=== PATIENT | female | born 1945 | race Caucasian/White ===

== ENCOUNTER 2016-06-15 18:06 | Inpatient (IN) | payer MEDICARE ==
[2016-06-15 19:31] LABS: SPECIFIC GRAVITY 1.015 (1.001-1.030); URINE BILIRUBIN NEGATIVE (NEGATIVE); URINE BLOOD NEGATIVE (NEGATIVE); URINE GLUCOSE (UA) NEGATIVE (NEGATIVE); URINE LEUKOCYTE ESTERASE NEGATIVE (NEGATIVE); URINE NITRITE NEGATIVE (NEGATIVE); URINE PROTEIN NEGATIVE (NEGATIVE); URINE UROBILINOGEN NORMAL (0-1 mg/dl)
[2016-06-15 19:33] LABS: ABSOLUTE NEUTROPHIL COUNT 1.4 K/mm3 (1.8-7.7); BASO % 0.9 % (0.2-1.0); EOS # 0.2 (0.0-0.5); EOS % 6.1 % (0.9-2.9); HEMATOCRIT 49.1 % (37.0-47.0); HEMOGLOBIN 16.9 gm/l (12.0-16.0); IMM NEUT% 0.3 % (0-1); LYMPH # 1.4 (1.0-4.8); LYMPH % 39.1 % (15-45); MEAN CELL VOLUME 102.5 fl (81.0-99.0); MEAN CORPUSCULAR HEMOGLOBIN 35.3 pg (27.0-31.0); MEAN CORPUSCULAR HGB CONC 34.4 g/dl (33.0-37.0); MEAN PLATELET VOLUME 10.4 fl (7.4-10.4); MONO # 0.5 (0.0-0.8); MONO % 13.9 % (4-12); NEUT % 39.7 % (43-75); PLATELET COUNT 99 K/mm3 (130-400); RED CELL DISTRIBUTION WIDTH 12.9 % (11.5-14.5)
[2016-06-15 19:47] LABS: ALB/GLOB RATIO 1.2 (>1.0); ALBUMIN 3.4 gm/dL (3.5-5.7); CALCIUM 9.5 mg/dL (8.6-10.3); MAGNESIUM 1.8 mg/dL (1.9-2.7); TROPONIN I < 0.01 ng/ml (0.0-0.06)
[2016-06-15 19:47] LABS: URINE APPEARANCE CLEAR; URINE COLOR YELLOW
--- NOTE | 2016-06-15 19:50 | RAD ---
CHEST 2 VIEWS HISTORY: Cough and shortness of breath. Frontal and lateral chest radiographs dated 06/15/2016. COMPARISON: None. FINDINGS: FOCAL AIRSPACE OPACITY: No gross airspace consolidation. BRONCHOVASCULAR MARKINGS: Coarsened. PLEURAL EFFUSION: None. CARDIOMEDIASTINAL SILHOUETTE: Nonenlarged. Aortic arch calcification. PNEUMOTHORAX: None identified. OSSEOUS STRUCTURES: Upper thoracic disc degeneration. UPPER ABDOMEN: Status post cholecystectomy. IMPRESSION: No gross airspace consolidation. Coarsened bronchovascular markings, which can be seen in the setting of bronchitis, atypical/viral infection, or central airways disease. Evidence of prior cholecystectomy and aortic atherosclerotic disease.
[2016-06-15 19:51] LABS: CKMB ISOENZYME 1.9 ng/ml (0.6-6.3)
[2016-06-15] MEDS ORDERED: ENALAPRILAT DIHYDRATE 1.25 MG/ML 1ML VIAL IV ONE (20:18)
[2016-06-15] MEDS ORDERED: FUROSEMIDE 40 MG/4 ML VIAL ONE (20:18)
[2016-06-15] MEDS ORDERED: BISACODYL 5 MG TABLET.EC PO PRN (20:51)
[2016-06-15] MEDS ORDERED: MAGNESIUM HYDROXIDE 30 ML UDCUP PO PRN (20:51)
[2016-06-15] MEDS ORDERED: SODIUM CHLORIDE 0.9% 100 ML IV PRN (20:51)
[2016-06-15] MEDS ORDERED: MENTHOL/CETYLPYRD 1 EACH LOZENGE PO PRN (20:51)
[2016-06-15] MEDS ORDERED: BISACODYL 10 MG SUP PR PRN (20:51)
[2016-06-15] MEDS ORDERED: BLISTEX LIPSTICK 1 EACH TP PRN (20:51)
[2016-06-15 21:00] VITALS: BMI 30.5
[2016-06-15] MEDS ORDERED: ENOXAPARIN SODIUM 40 MG/0.4 ML SYRINGE SUB-Q SCH (21:00)
[2016-06-15] MEDS ORDERED: MAGNESIUM SULFATE 2 G/50 ML 2 G in Premix (Water) 50 ml 1 EACH IV ONE (21:52)
[2016-06-15] MEDS ORDERED: AMLODIPINE BESYLATE 5 MG TABLET PO ONE (21:52)
[2016-06-15] MEDS ORDERED: PUMP TUBING ONE (22:46)
[2016-06-15] MEDS ORDERED: MAGNESIUM SULFATE 1 G/100 ML 200 ML IV ONE (22:53)
[2016-06-15] MEDS ORDERED: ENOXAPARIN SODIUM 80 MG/0.8 ML SYRINGE SUB-Q SCH (23:00)
[2016-06-15] MEDS: DOCUSATE SODIUM 100 MG CAPSULE PO SCH (23:02)
[2016-06-15] MEDS: MAGNESIUM SULFATE 1 G/100 ML 100 ML IV SCH (23:32)
[2016-06-16] MEDS: MAGNESIUM SULFATE 1 G/100 ML 100 ML IV SCH (01:11)
[2016-06-16 05:35] LABS: ABSOLUTE NEUTROPHIL COUNT 1.8 K/mm3 (1.8-7.7); EOS # 0.2 (0.0-0.5); EOS % 4.3 % (0.9-2.9); HEMATOCRIT 45.2 % (37.0-47.0); HEMOGLOBIN 15.5 gm/l (12.0-16.0); IMM NEUT% 0.2 % (0-1); LYMPH # 1.5 (1.0-4.8); LYMPH % 36.5 % (15-45); MEAN CELL VOLUME 101.3 fl (81.0-99.0); MEAN CORPUSCULAR HEMOGLOBIN 34.8 pg (27.0-31.0); MEAN CORPUSCULAR HGB CONC 34.3 g/dl (33.0-37.0); MEAN PLATELET VOLUME 10.5 fl (7.4-10.4); MONO # 0.6 (0.0-0.8); MONO % 14.9 % (4-12); NEUT % 43.1 % (43-75); PLATELET COUNT 97 K/mm3 (130-400); RED CELL DISTRIBUTION WIDTH 12.7 % (11.5-14.5)
[2016-06-16 05:56] LABS: CALCIUM 8.8 mg/dL (8.6-10.3); MAGNESIUM 2.4 mg/dL (1.9-2.7)
--- NOTE | 2016-06-16 06:46 | HP ---
Lindy Loomis [id number] DATE OF ADMISSION: 06/15/2016 CHIEF COMPLAINT: Shortness of breath. HISTORY OF PRESENT ILLNESS: The patient is a 71-year-old female with past medical history significant for hypertension who presents to the [facility] Emergency Department with complaints of a one week history of increased dyspnea. She reports, however, she has had some chronic shortness of breath symptoms which have been present since last January. She reports, however, over the last week her symptoms have gotten dramatically worse. They seem to start after she got a plane from [place]. She and her have both had similar symptoms of cough. She was treated with a Z-Dheeraj, but had no significant improvement. She denies any fevers or chills. She did have a little bit of orthopnea last night and slept with two pillows. She has not noticed any lower extremity swelling and has not had any abdominal bloating. In the emergency department she was found to have severe blood pressure elevation. She was treated with Enalapril and Lasix. She was felt to have acute diastolic heart failure and was referred to the hospitalist service for admission. REVIEW OF SYSTEMS: Negative for any recent fevers or chills. She has had slight nasal congestion along with a cough. Initially the cough was product of discolored sputum. She has had associated dyspnea. She has had no chest pain, no palpitation. She denies nausea, vomiting, abdominal pain, or bloating, diarrhea, or constipation. She does get occasional lower extremity swelling, but denies any significant swelling in the last week. She has had no new arthralgia's. She has had no leg pain. No headaches, fainting, blackouts or seizures. No urinary complaints. Review of systems is otherwise negative. She does have excessive daytime somnolence and she does snore. PAST MEDICAL HISTORY: Significant for chronic essential hypertension. Her daughter notes that she has recorded marked blood pressure elevation at home, but at the doctor's office it seems like it has been okay. She has had some mild carotid arterial disease which has been stable. She has had some elevated liver function tests of uncertain etiology. She was evaluated by Dr. Epi Blue and reassured by this. Her ultrasound of her liver showed evidence of fatty liver change, no biliary obstruction, no gallstones. She has never had a liver biopsy. She denies any other chronic medical problems except she did have low vitamin D levels last year and takes vitamin D supplements. PAST SURGICAL HISTORY: Significant for a prior cholecystectomy, tonsillectomy, appendectomy, and she had a tubal on the left side many years ago. She has not had any recent surgeries. ALLERGIES: DOCUMENTED TO PENICILLIN as a child. CURRENT MEDICATIONS: Consistent of: 1. Atenolol 50 mg daily. 2. Vitamin D3 1000 units daily. 3. She is not on any calcium or supplements at this time. FAMILY HISTORY: Significant for a mother who had congestive heart failure. Her father had emphysema. SOCIAL HISTORY: She has been for over 50 years, they have four children. She is a former smoker, she quit approximately 10 years ago. She was never a heavy smoker using about a pack a week approximating 20 pack years. She did have some second hand smoke exposure as a child though. Her primary care provider is Dr. Brittani De La Vega. She denies heavy alcohol use or any illicit drug use. She has never had a pneumonia vaccine or a flu vaccine. PHYSICAL EXAMINATION: VITAL SIGNS: Show a body mass index of 30.6 and a weight of 71 kg. Temperature is 97.5, pulse 62, blood pressure 194/84 currently and was 212/76 in the emergency department, her respiratory rate is 20, her oxygen saturations are 93% on 2 liters and were down to 87% on room air with minimal activity. GENERAL: This is a slightly obese female in no acute distress. HEENT: Shows moist pink oral mucosa. No lesions. NECK: Supple without lymphadenopathy. No visible jugular venous distention. LUNGS: Do reveal bibasilar crackles. CARDIOVASCULAR: Reveals a regular rate and rhythm without a murmur. ABDOMEN: Obese, soft, nontender, nondistended with positive bowel sounds. PELVIC: Deferred. RECTAL: Deferred. EXTREMITIES: Show trace lower extremity edema. Normal peripheral pulses in her feet and extremities. Jeison sign is negative bilaterally. No skin lesions. NEURO: Nonfocal. She is alert and oriented x3. LABORATORY STUDIES: CBC shows a white count of 3.5, hemoglobin of 16.9, hematocrit of 49.1, platelet count of 99,000. Lactate is elevated at 2.3. Chemistry profile shows sodium of 139, potassium 4.3, carbon dioxide 22, BUN 10, creatinine 0.7, glucose 99, magnesium low at 1.8. Total bilirubin is 1.7, AST is 103, ALT 61. Troponin I is less than 0.01. B-type natiuretic peptide is 150. Albumin 3.4, globulin 2.8. Urinalysis is unremarkable. Influenza A and B screen were negative. Lactate elevated at 2.3. DIAGNOSTICS: Chest x-ray shows some coarsened bronchovascular markings, no cardiomegaly, no airspace consolidation. EKG shows sinus rhythm. No ST or T-wave changes. ASSESSMENT: Patient with shortness of breath with hypoxia. She had markedly elevated blood pressure in the emergency department, rule out acute diastolic heart failure, suspect hypertensive urgency. Lactic acidosis likely due to CHF. There is no concern for sepsis at this time. She has obesity with excessive daytime somnolence. She may benefit from an outpatient sleep study in the future. She has had recent travel. I am planning on doing a CT angiogram in the morning regardless of D-Dimer level given the persistent nature of her shortness of breath symptoms. I am also planning on getting an echocardiogram. I have ordered a single dose of oral Norvasc today. Will likely put her on an Semaj inhibitor and possible Norvasc for a more aggressive blood pressure treatment, but will reevaluate her renal function in the morning. I am going to go ahead and give her a 1mg/1kg of Lovenox pending the results of her CT angiogram in the morning. Recommended she consider a flu vaccine and a pneumonia vaccination, she has not yet decided. We will give her some magnesium replacement for her hypomagnesemia. She had elevated liver function tests likely due to chronic fatty liver disease, possibly related to diastolic heart failure as well. She has some mild leukopenia and thrombocytopenia, suspect she is recovering from a viral bronchitis and I think the leukopenia and thrombocytopenia are virally mediated. She has elevated hemoglobin level, cause unclear, suspicious for chronic hypoxia, possibly related to sleep apnea. Further treatment and recommendations will depend on her hospital course. JOB: [id number] CC: Dr. Brittani De La Vega
[2016-06-16] MEDS ORDERED: IOPAMIDOL 370 (76%) 100 ML VIAL IV ONE (08:12)
[2016-06-16] MEDS: DOCUSATE SODIUM 100 MG CAPSULE PO SCH ×2 (09:33→20:46)
[2016-06-16] MEDS: ATENOLOL 50 MG TABLET PO SCH (09:34)
[2016-06-16] MEDS: VITAMIN D3 1,000 UNITS CAP.LIQ PO SCH (09:34)
--- NOTE | 2016-06-16 10:23 | CT ---
INDICATION: CHF, shortness of breath. COMPARISON: Plain films 06/15/2016 TECHNIQUE: Helical scan mode CT of the Thorax with 2 mm collimated images were obtained after uneventful intravenous contrast administration of 80 of Isovue-370. Sagittal and coronal reformations with high resolution lung algorithm images were also created at this time. Maximal intensity projection images and 3-D volumetric sequences were created at a separate, dedicated workstation. DLP: 423.1 FINDINGS: There are no pulmonary arterial filling defects. Mild motion artifact does limit assessment. Dependent and atelectatic changes are present. There is a coarseness to the interstitium. No pleural effusion. The central airways are widely patent. There is no axillary adenopathy. Right precarinal node on image 29 measures 1.6 x 1 cm. Right hilar node on image 35 measures 1.6 x 1.5 cm. Nodes are enlarged without respect histology. No other adenopathy is seen in the nicolle or mediastinum. The heart and great vessels opacify normally. Surgical clips are present in the gallbladder fossa. There may be gastroesophageal varices. Correlation with patient's history and physical for underlying cirrhosis would be recommended. Review of bone windows demonstrates no osteoblastic or lytic lesions. Mild degenerative changes of the spine. IMPRESSION: 1. Negative for pulmonary embolism. Study is somewhat limited by patient breathing motion artifact. Coarseness to the lung interstitium is present without focal pathology. Hilar and mediastinal adenopathy without respect histology. Possible gastroesophageal varices. Question of underlying cirrhosis history. Findings were called to Dr. Ross at approximately 1018 hours on 06/16/2016.
--- NOTE | 2016-06-16 11:45 | PDOC43 ---
- Subjective Chief Complaint: SOB Feels better this AM. Still sl more SOB than nl. No CP. No F/C. No N/V. No other c/o's. Subjective: Reports Tolerating Diet Well, Reports Urinating Without Difficulty, Denies Cough, Denies Abdominal Pain, Denies Nausea, Denies Vomiting, Denies Fever, Denies Chills - Objective Vital Signs Temperature 97.7 F 06/16/16 07:39 Pulse Rate 65 06/16/16 07:39 Respiratory Rate 16 06/16/16 07:39 Blood Pressure 128/50 06/16/16 07:39 O2 Saturation by Pulse Oximetry 92 06/16/16 07:39 Oxygen Delivery Method Nasal Cannula Oxygen Flow Rate 2 Intake and Output 06/15/16 06/16/16 06/17/16 06:59 06:59 06:59 Intake Total 670 Output Total 1950 Balance -1280 General: Alert, Oriented x3, Cooperative, No Acute Distress HEENT: Atraumatic Lungs: Clear to Auscultation Bilaterally Cardiovascular: Regular Rate and Rhythm Abdomen: Soft, Normal Bowel Sounds, Non-Distended, No Tenderness Extremities: Normal Cap Refill, Normal Pulses, No Edema Laboratory 06/16/16 05:15 06/16/16 05:15 06/15/16 06/16/16 19:15 05:15 Total Bilirubin 1.7 H AST 101 H ALT 61 H Alkaline Phosphatase 109 H Troponin I < 0.01 < 0.01 Current Medications: Current meds reviewed in EMR. - Problems: Assessment/Plan (1) Hypoxia Status: AcuteAssessment/Plan: SOB x several months with acute exacerbation and hypoxia at admit. Dx still unclear. Cherst CTA with no PE and no evidence on pna. Awaiting echo this afternoon. Suspect HTN urgency in context of presumed undiagnosed MINH as etiology. Con't supportive care and await results of workup. (2) HTN (hypertension) Qualifiers: Hypertension type: essential hypertension Qualifier Code: (I10) Essential (primary) hypertension Status: AcuteAssessment/Plan: HTN urgency at admit. Improved with Lasix/enalapril in ER and po norvasc last noc. Await echo results- anticipate starting ACEI. (3) Fatty liver Status: ChronicAssessment/Plan: Appears to be long standing at least as far back as 2006. Abd US 09/15 c/w fatty liver. Suspect BENAVIDES. Possible esoph varices noted on CT scan. Anticipate outpt f/u. VTE Prophylaxis: Lovenox. Disposition: Anticipate d/c home in 1-2 days.
[2016-06-16] MEDS: ENOXAPARIN SODIUM 40 MG/0.4 ML SYRINGE SUB-Q SCH (13:09)
[2016-06-16] MEDS: LISINOPRIL 20 MG TABLET PO SCH (16:03)
[2016-06-17 06:29] LABS: HEMATOCRIT 43.4 % (37.0-47.0); HEMOGLOBIN 14.9 gm/l (12.0-16.0); MEAN CELL VOLUME 101.4 fl (81.0-99.0); MEAN CORPUSCULAR HEMOGLOBIN 34.8 pg (27.0-31.0); MEAN CORPUSCULAR HGB CONC 34.3 g/dl (33.0-37.0)
[2016-06-17 06:50] LABS: ALB/GLOB RATIO 1.2 (>1.0); ALBUMIN 2.7 gm/dL (3.5-5.7); CALCIUM 9.1 mg/dL (8.6-10.3)
[2016-06-17] MEDS: DOCUSATE SODIUM 100 MG CAPSULE PO SCH (08:48)
[2016-06-17] MEDS: VITAMIN D3 1,000 UNITS CAP.LIQ PO SCH (08:48)
[2016-06-17] MEDS: ATENOLOL 50 MG TABLET PO SCH (08:49)
[2016-06-17] MEDS: LISINOPRIL 20 MG TABLET PO SCH (08:50)
[2016-06-17] MEDS ORDERED: FUROSEMIDE 40 MG/4 ML VIAL IV ONE ×2 (09:17→17:05)
[2016-06-17] MEDS: ENOXAPARIN SODIUM 40 MG/0.4 ML SYRINGE SUB-Q SCH (11:48)
--- NOTE | 2016-06-17 12:24 | PDOC43 ---
- Subjective Chief Complaint: SOB Subjective: Reports Tolerating Diet Well, Denies Chest Pain, Denies Fever - Objective Vital Signs Temperature 98.1 F 06/17/16 11:54 Pulse Rate 63 06/17/16 11:54 Respiratory Rate 16 06/17/16 11:54 Blood Pressure 146/50 06/17/16 11:54 O2 Saturation by Pulse Oximetry 91 06/17/16 11:54 Oxygen Delivery Method Nasal Cannula Oxygen Flow Rate 2 Intake and Output 06/16/16 06/17/16 06/18/16 06:59 06:59 06:59 Intake Total 670 1460 Output Total 1950 775 Balance -1280 685 General: Alert, Oriented x3, Cooperative, Mild Distress HEENT: Mucous membr. moist/pink Lungs: Other (bibasilar crackles) Cardiovascular: Regular Rate and Rhythm Abdomen: Soft, No Tenderness Extremities: Edema (trace) Skin: Warm, Dry, Intact Laboratory 06/17/16 06:10 06/17/16 06:10 06/17/16 06:10 MCV 101.4 H MCH 34.8 H Total Bilirubin 1.7 H AST 56 H Total Protein 5.0 L Albumin 2.7 L Current Medications: Current meds reviewed in EMR. - Problems: Assessment/Plan (1) Hypoxia Status: AcuteAssessment/Plan: SOB x several months with acute exacerbation and hypoxia at admit. Dx still unclear. Cherst CTA with no PE and no evidence on pna. ECHO shows diastolic dysfunction with preserved LVEF. Suspect HTN urgency in context of presumed undiagnosed MINH as etiology and acute diastolic CHF. -IV lasix, outpatient cardiology and pulmonary follow up (2) HTN (hypertension) Qualifiers: Hypertension type: essential hypertension Qualifier Code: (I10) Essential (primary) hypertension Status: AcuteAssessment/Plan: HTN urgency at admit. Improved with Lasix/enalapril in ER and po norvasc last noc. - doing well on ACEI. (3) Fatty liver Status: ChronicAssessment/Plan: Appears to be long standing at least as far back as 2006. Abd US 09/15 c/w fatty liver. Suspect BENAVIDES. Possible esoph varices noted on CT scan. Anticipate outpt f/u. VTE Prophylaxis: Lovenox. Disposition: Anticipate d/c home in 1-2 days.
[2016-06-17] MEDS: GUAIFENESIN 600 MG TABLET.DR PO SCH (14:03)
[2016-06-17] MEDS: ACETAMINOPHEN 325 MG TABLET PO PRN (14:41)
[2016-06-18] MEDS: DOCUSATE SODIUM 100 MG CAPSULE PO SCH ×2 (00:32→09:31)
[2016-06-18] MEDS: GUAIFENESIN 600 MG TABLET.DR PO SCH ×2 (00:32→09:30)
[2016-06-18] MEDS: ACETAMINOPHEN 325 MG TABLET PO PRN (05:44)
[2016-06-18 06:39] LABS: EOS # 0.2 (0.0-0.5); EOS % 4.6 % (0.9-2.9); HEMATOCRIT 42.2 % (37.0-47.0); HEMOGLOBIN 14.4 gm/l (12.0-16.0); IMM NEUT% 0.2 % (0-1); LYMPH # 1.3 (1.0-4.8); LYMPH % 32.3 % (15-45); MEAN CELL VOLUME 101.7 fl (81.0-99.0); MEAN CORPUSCULAR HEMOGLOBIN 34.7 pg (27.0-31.0); MEAN CORPUSCULAR HGB CONC 34.1 g/dl (33.0-37.0); MEAN PLATELET VOLUME 11.6 fl (7.4-10.4); MONO # 0.6 (0.0-0.8); MONO % 13.4 % (4-12); NEUT % 48.5 % (43-75); PLATELET COUNT 90 K/mm3 (130-400); RED CELL DISTRIBUTION WIDTH 12.7 % (11.5-14.5)
[2016-06-18 07:02] LABS: ALB/GLOB RATIO 1.2 (>1.0); ALBUMIN 2.7 gm/dL (3.5-5.7); CALCIUM 9.2 mg/dL (8.6-10.3)
[2016-06-18] MEDS ORDERED: FUROSEMIDE 40 MG/4 ML VIAL IV ONE (08:14)
[2016-06-18] MEDS ORDERED: FUROSEMIDE 40 MG TABLET PO SCH (09:00)
[2016-06-18] MEDS: ATENOLOL 50 MG TABLET PO SCH (09:30)
[2016-06-18] MEDS: LISINOPRIL 20 MG TABLET PO SCH (09:30)
[2016-06-18] MEDS: VITAMIN D3 1,000 UNITS CAP.LIQ PO SCH (09:30)
[2016-06-18 09:39] LABS: URINE BILIRUBIN NEGATIVE (NEGATIVE); URINE BLOOD NEGATIVE (NEGATIVE); URINE GLUCOSE (UA) NEGATIVE (NEGATIVE); URINE LEUKOCYTE ESTERASE NEGATIVE (NEGATIVE); URINE NITRITE NEGATIVE (NEGATIVE); URINE PROTEIN NEGATIVE (NEGATIVE); URINE UROBILINOGEN NORMAL (0-1 mg/dl)
[2016-06-18 09:41] LABS: URINE APPEARANCE CLEAR; URINE COLOR AMBER
[2016-06-18 09:48] LABS: URINE BACTERIA RARE; URINE EPITHELIAL CELLS 0-2 /hpf; URINE RBC 0 /hpf; URINE WBC NEG /hpf
[2016-06-18 11:15] VITALS: BP 130/50
[2016-06-18] MEDS: ENOXAPARIN SODIUM 40 MG/0.4 ML SYRINGE SUB-Q SCH (12:46)
--- NOTE | 2016-06-18 13:11 | DS ---
Lindy Loomis [id number] DATE OF ADMISSION: 06/15/2016 DATE OF DISCHARGE: 06/18/2016 DISCHARGE DIAGNOSES: 1. Shortness of breath with hypoxia. 2. Hypertensive urgency. 3. Suspected acute diastolic congestive heart failure. 4. Patient also has evidence of secondary polycythemia. 5. Cannot rule out underlying chronic lung disease or underlying obst. sleep apnea. 6. Nonalcoholic steatohepatitis. TO SUMMARIZE THE ADMISSION AND HOSPITAL COURSE: The patient is a 71-year-old female who presented with complaints of shortness of breath. She's reported chronic shortness of breath symptoms over the last eight months, this has gotten progressively worse over the last week. She has had previous workup of elevated liver function test done as outpatient. It is unclear what her official diagnosis was, it appears to be nonalcoholic steatohepatitis. She never had a liver biopsy. She has had some chronic essential hypertension. On presentation she was found to have some hypoxia with oxygen saturations down to 87% with minimal activity. She has had mild history of tobacco use approximately 10 to 20 pack years. Workup included chest x-ray showing coarsened bronchovascular markings, normal cardiac silhouette in the emergency department. She was referred to the hospitalist service for admission. She was treated with oxygen therapy and initial blood pressure was as high as 212/76 managed with IV enalapril and Lasix. She subsequently had a CT angiogram showing no evidence of thromboembolic disease. There was some coarsening of the lung interstitium of uncertain significance and hilar and mediastinal adenopathy of uncertain significance. Her initial CBC and subsequent CBC's were normal except for some mild thrombocytopenia. Her initial hemoglobin was elevated at 16.9. Ironically this improved to 14.4 with diuresis. During her hospital stay she was managed with Lasix. She had some improvement in her symptoms. Her renal function remained stable and electrolytes remained stable. Her blood pressure was managed with lisinopril. She had some persistent hypoxia on the day of discharge, but was eager for discharge. Further outpatient workup was recommended. PHYSICAL EXAMINATION: VITALS: At discharge showed a temperature 97.7, pulse 58, blood pressure 130/50, respirations 18, oxygen saturations of 89% to 92% on room air. Body mass index 32.8, weight is 76.1 kg. GENERAL: This is an obese female in no acute distress. HEENT: Unremarkable. LUNGS: Reveal bibasilar crackles. CARDIOVASCULAR: Reveals a regular rate and rhythm without a murmur. ABDOMEN: Obese, soft, nontender, nondistended with positive bowel sounds. EXTREMITIES: Show trace lower extremity edema. LABORATORY STUDIES: Showed a CBC with a white count of 4.1, hemoglobin of 14.4, and a platelet count of 90,000. Chemistry profile showed a sodium of 139, potassium 4.0, BUN 18, creatinine 0.8, total bilirubin 1.6, AST 48, ALT 35. Cardiac enzymes were normal. DISPOSITION: Home. DISCHARGE CONDITION: Fair. ALLERGIES: PENICILLIN. DISCHARGE MEDICATIONS: 1. She is discharging on home oxygen therapy at 2 liters by nasal cannula. 2. Lasix 20 mg daily. 3. Lisinopril 20 mg daily. 4. She will continue with tenormin 50 mg daily. 5. Vitamin D3 1000 units daily. Requested referral to cardiology and pulmonary for further evaluation of her ongoing symptoms. She will follow up with her primary provider, Dr. Brittani De La Vega on June 22 at 4:40 p.m. JOB: [id number] CC: [facility] Dr. Brittani De La Vega.
== END 2016-06-18 13:45 | disposition home or self-care (01) | DRG 305 ==
LOC: ED 18:06 → MS 20:15
PROVIDERS: ADMIT Family Medicine; ATTEND Family Medicine
DX: I16.0 Hypertensive urgency (principal); R06.02 Shortness of breath; D75.1 Secondary polycythemia; I10 Essential (primary) hypertension; K75.81 Nonalcoholic steatohepatitis (NASH)